=== PATIENT | male | born 1980 ===

== ENCOUNTER 2017-07-31 18:12 | Emergency (ER) | payer OTHER ==
[2017-07-31 18:19] VITALS: BP 166/122; PULSE 91; RESP 18; TEMP 98.5; O2SAT 100
--- NOTE | 2017-07-31 18:38 | C.PDOC ---
History Of Present Illness 37yo male, presents to ED with complaints of gout like joint pain with inflammation of left ankle, right podagra, right elbow and bilateral wrists. Patient claims to have been diagnosed with gout at 22 years old due to high uric acid count; reports his condition is hereditary. Patient sates he has never taken probenecid. He has a history of hypertension and reports he has been compliant with his diet and medication. Patient also states he just returned from the [facility] and was compliant with his diet there. Time Seen by Provider: 07/31/17 18:24 Chief Complaint (Nursing): Lower Extremity Problem/Injury History Per: Patient History/Exam Limitations: no limitations Onset/Duration Of Symptoms: Days Current Symptoms Are (Timing): Still Present Past Medical History Reviewed: Historical Data, Nursing Documentation, Vital Signs Vital Signs: Last Vital Signs Temp 98.5 F 07/31/17 18:16 Pulse 91 H 07/31/17 18:16 Resp 18 07/31/17 18:16 BP 166/122 H 07/31/17 18:16 Pulse Ox 100 07/31/17 18:43 - Medical History PMH: HTN Surgical History: Appendectomy Family History: States: No Known Family Hx - Social History Hx Alcohol Use: Yes Hx Substance Use: No - Immunization History Hx Tetanus Toxoid Vaccination: No Hx Influenza Vaccination: No Hx Pneumococcal Vaccination: No Review Of Systems Except As Marked, All Systems Reviewed And Found Negative. Musculoskeletal: Positive for: Hand Pain, Foot Pain Neurological: Negative for: Weakness, Numbness Physical Exam - Physical Exam Appears: Non-toxic, Other (moderate distress, morbidly obezse) Skin: Normal Color, Warm, Dry Head: Atraumatic, Normacephalic Eye(s): bilateral: Normal Inspection Nose: Normal Oral Mucosa: Moist Neck: Normal ROM, Supple Chest: Symmetrical Cardiovascular: Rhythm Regular Respiratory: Normal Breath Sounds Extremity: No Tenderness, Swelling (mild to moderate inflammation of left ankle , right podagra, right elbow and wrist.), Other (small abrasion noted to left podagra. ) Neurological/Psych: Oriented x3 ED Course And Treatment O2 Sat by Pulse Oximetry: 100 (RA) Pulse Ox Interpretation: Normal Medical Decision Making Medical Decision Making: strange presentation for gout: why multi joint? no podagra. worse taking Allopurinol during and attack and ran out of Colchicine. No proper diagnosis- requires joint aspiration. Disposition Doctor Will See Patient In The: Office Counseled Patient/Family Regarding: Studies Performed, Diagnosis - Disposition Referrals: Reza Hdz MD [Staff Provider] - Monroe Lyn MD [Staff Provider] - Disposition: HOME/ ROUTINE Disposition Time: 18:40 Condition: GOOD Additional Instructions: COLCHICINE: 0.6 mg by mouth one hour after the initial dose of 1.2 mg in the ED That's 1.8 mg in the first hour of treatment. Then 0.6 every 2 hour until diarrhea Then 0.6 mg 4 times a day until the gouty attack resolves. INDOMETHACIN (ANTI-INFLAMMATORY) 50 mg THREE times a day until the gouty pain is improved, then NEEDED three times a day. ALLOPURINOL: restart 1 week AFTER the gouty attack is resolved do NOT take during a gouty attack- makes it worse. mild gout: 200-300 mg/day moderate/Severe gout: 400-600 mg/day Probenecid: consider this medication in your future treatment. Eliminates uric acid from the urine Follow-up with Dr. Lyn- Surgeon Partner- for appropriate diagnosis and treatment. Prescriptions: Allopurinol [Zyloprim] 300 mg PO DAILY #30 tab Colchicine 0.6 mg PO QID PRN #30 capsule PRN Reason: gout Indomethacin [Indocin] 50 mg PO TID PRN #30 cap PRN Reason: gout Instructions: Lifestyle Changes to Manage Gout, Gout (DC) Forms: Seeking Alpha (Turkmen) - Clinical Impression Clinical Impression: Gout attack - Scribe Statement The provider has reviewed the documentation as recorded by the Daraibe (Yohana Francisco) Provider Attestation: All medical record entries made by the Daraibjana were at my direction and personally dictated by me. I have reviewed the chart and agree that the record accurately reflects my personal performance of the history, physical exam, medical decision making, and the department course for this patient. I have also personally directed, reviewed, and agree with the discharge instructions and disposition.
== END 2017-07-31 19:48 | disposition home or self-care (01) ==
LOC: C.ER 18:12
DX: M10.9 Gout, unspecified (principal)